=== PATIENT | female | born 1950 | race Caucasian/White ===

== ENCOUNTER → 2017-04-23 | Outpatient (CLI) | payer OTHER, MEDICARE ==
[~2017-04-23] MED LIST: ASPCH81X PO; ATOR-22 PO; LISI-725 PO; MULTCAP42 PO; PRLSR20 PO; ZNTT/150 PO; [UNRECOGNIZED DRUG - CODE] PO
--- NOTE | 2017-04-23 15:52 | MAMMOGRAPHY REPORT ---
BILATERAL DIGITAL SCREENING MAMMOGRAM WITH CAD: 04/23/2017 CLINICAL HISTORY: Routine screening. Patient has no complaints. The patient reported a right breast surgical excisional biopsy in 2016. TECHNIQUE: Current study was also evaluated with a Computer Aided Detection (CAD) system. Bilateral CC and MLO views were obtained. COMPARISON: Comparison is made to exams dated: 03/04/2016 stereotactic biopsy, 03/04/2016 mammogram, mammogram, 02/11/2016 mammogram, 02/27/2013 mammogram, and 02/27/2013 aspiration - [facility]. BREAST COMPOSITION: There are scattered areas of fibroglandular density in both breasts. FINDINGS: No suspicious masses, calcifications, or areas of architectural distortion are noted in ei ther breast. There has been no significant interval change compared to prior exams. There is new den sity and architectural distortion in the right breast at approximately 12 to 1:00, which likely repre sents post surgical changes from interval surgical excision (right breast stereotactic biopsy perform ed on February 2016 showed a small intraductal papilloma). A linear scar marker denotes a scar on the right anterior 12:00 breast. Oval benign-appearing 10 mm mass in the left medial breast is stable. IMPRESSION: ACR BI-RADS CATEGORY 2: BENIGN There is no mammographic evidence of malignancy. A 1 year screening mammogram is recommended. The pa tient will receive written notification of the results. Approximately 10% of breast cancers are not detected with mammography. A negative mammographic report should not delay biopsy if a clinically suggestive mass is present. Camille Cortez M.D. ah/:04/23/2017 14:32:25 [employer] Curator: Fouzia SETH(Marcella)(Devendra), [facility] letter sent: Normal 1/2 BI-RADS Code: ACR BI-RADS Category 2: Benign
== END | disposition home or self-care (01) ==
LOC: C.MAMM 13:44
PROVIDERS: ATTEND Obstetrics & Gynecology Reproductive Endocrinology
DX: Z12.31 Encounter for screening mammogram for malignant neoplasm of breast (principal)

== ENCOUNTER 2017-05-23 06:12 | Emergency (ER) | payer OTHER, MEDICARE ==
[~2017-05-23] VITALS: Ht 180.3 cm; Wt 92.9 kg
[2017-05-23 06:21] VITALS: TEMP 36.5; Ht 180.3 cm; Wt 92.9 kg
[2017-05-23] MEDS ORDERED: LPT40 PO (06:43)
[2017-05-23] MEDS ORDERED: LEVO25TA5 PO (06:43)
[2017-05-23] MEDS ORDERED: FLNIN/ NAE (06:43)
[2017-05-23] MEDS ORDERED: PROG1CAP PO (06:43)
[2017-05-23] MEDS ORDERED: LEVO200T6 PO (06:43)
[2017-05-23] MEDS ORDERED: FEXO1TAB49 PO (06:45)
[2017-05-23] MEDS ORDERED: ERGO500037 PO (06:46)
[2017-05-23] MEDS ORDERED: CALC-20 PO (06:46)
[2017-05-23] MEDS ORDERED: HYZ/50125 PO (06:47)
[2017-05-23] MEDS ORDERED: PRT/20 PO (06:47)
[2017-05-23] MEDS ORDERED: EST1 PO (06:49)
[2017-05-23] MEDS ORDERED: PANT40TA2 PO (06:49)
[2017-05-23 06:51] LABS: MANUAL MICROSCOPIC REQUIRED? YES; REVIEW REQ? NO; SULFASALICYLIC ACID NEG (NEG); URINE APPEARANCE SLIGHTLY CLOUDY (CLEAR); URINE COLOR ORANGE; URINE SPECIFIC GRAVITY 1.015 (1.000-1.030)
[2017-05-23 06:54] LABS: URINE BACTERIA 1+ (NEG); URINE RBC >30 /hpf (0-4); URINE WBC >30 /hpf (0-5); ZZUR CULT IF INDIC CLEAN CATCH YES
--- NOTE | 2017-05-23 07:06 | EMERGENCY ROOM VISIT NOTE ---
History Report prepared by Reggie: Donovan Cardona Under the Supervision of: Dr. Beena Simmons D.O. First contact with patient: 06:26 Chief Complaint: URINARY SYMPTOMS Stated Complaint: UTI History of Present Illness The patient is a 67 year old female with a history of UTI's who presents to the Emergency Room with complaints of persistent urinary symptoms that started 3 days ago. She says that her is having a probable staph infection on his finger, and she started getting UTI symptoms around the same time, so given the circumstances, she decided to be seen here. The patient states that she started on her Nitrofurantoin 3 days ago. She notes that she has never grown out a strain that is resistant to antibiotics. The patient notes that she has been having lower abdominal pain, burning and increased urgency of urination. She adds that she has been having some chills as well. The patient denies any nausea , vomiting, back pain, fevers, abnormal vaginal discharge, or bowel movement changes. Source of History: patient Onset: 3 days ago Position: other (global - urinary symptoms) Quality: other (burning, increased urgency) Timing: other (persistent) Associated Symptoms: + chills, + abdominal pain, No fevers, No nausea, No vomiting, No back pain Note: Associated symptoms: Denies abnormal vaginal discharge, bowel movement changes. Review of Systems See HPI for pertinent positives & negatives. A total of 10 systems reviewed and were otherwise negative. Past Medical & Surgical Medical Problems: (1) Hypercholesteremia Surgical Problems: (1) S/P cholecystectomy Family History Cancer Heart disease Social History Smoking Status: Never Smoker Marital Status: Housing Status: lives with family Occupation Status: employed Current/Historical Medications Scheduled Aspirin (Aspirin Chewable), 81 MG PO DAILY Atorvastatin (Atorvastatin Calcium), 40 MG PO DAILY Calcium Carbonate-Vitamin D (Calcium 600 + D), 1 TAB PO DAILY Cephalexin (Keflex), 1 CAP PO BID Ergocalciferol (Vitamin D 73966 Unit), 50,000 UNIT PO 2XWK Estradiol (Estradiol), 3 MG PO DAILY Fexofenadine Hcl (Christine Allergy), 1 TAB PO DAILY Fluticasone Propionate (Fluticasone Propionate), 1-2 SPRAYS MARLEN DAILY Hctz/Losartan (Hyzaar 12.5MG/50MG), 1 TAB PO DAILY Levothyroxine Sodium (Levothyroxine Sodium), 200 MCG PO DAILY Levothyroxine Sodium (Levothyroxine Sodium), 25 MCG PO DAILY Multiple Vitamin (Multivitamins), 1 CAP PO DAILY Pantoprazole (Pantoprazole Sodium), 40 MG PO QAM Progesterone Micronized (Progesterone), 100 MG PO DAILY Ranitidine (Zantac), 150 MG PO HS Allergies Coded Allergies: Sulfa Antibiotics (Verified Allergy, Severe, HIVES, 05/23/17) Fluconazole (Verified Adverse Reaction, Intermediate, thrush, 05/23/17) Physical Exam Vital Signs Date Time Temp Pulse Resp B/P (MAP) Pulse Ox O2 Delivery O2 Flow Rate FiO2 05/23/17 07:29 81 16 128/67 96 Room Air 05/23/17 06:21 36.5 95 18 177/92 92 Room Air Physical Exam GENERAL: alert, well appearing, well nourished, no distress, non-toxic EYE EXAM: normal conjunctiva, PERRL and EOM's grossly intact OROPHARYNX: no exudate, no erythema, lips, buccal mucosa, and tongue normal and mucous membranes are moist NECK: supple, no nuchal rigidity, no adenopathy, non-tender LUNGS: Clear to auscultation. Normal chest wall mechanics HEART: no murmurs, S1 normal and S2 normal ABDOMEN: Mild suprapubic tenderness. Abdomen soft, normo-active bowel sounds, no masses, no rebound or guarding. BACK: Back is symmetrical on inspection and there is no deformity, no midline tenderness, no CVA tenderness. SKIN: no rashes and no bruising UPPER EXTREMITIES: upper extremities are grossly normal. LOWER EXTREMITIES: No pitting edema. NEURO EXAM: Normal sensorium, cranial nerves II-XII grossly intact, normal speech, no gross weakness of arms, no gross weakness of legs. Medical Decision & Procedures Laboratory Results Test 05/23/17 06:25 Urine Color ORANGE Urine Appearance SLIGHTLY CLOUDY (CLEAR) Urine pH (4.5-7.5) Urine Specific [place] 1.015 (1.000-1.030) Urine Protein NEG (NEG) Urine Glucose (UA) (NEG) Urine Ketones (NEG) Urine Occult Blood (NEG) Urine Nitrite (NEG) Urine Bilirubin (NEG) Urine Urobilinogen (NEG) Urine Leukocyte Esterase (NEG) Urine RBC >30 /hpf (0-4) Urine WBC >30 /hpf (0-5) Urine Epithelial Cells 10-20 /lpf (0-5) Urine Bacteria 1+ (NEG) Date/Time Source Procedure Growth Status 05/23/17 06:25 Urine , Clean Catch Urine Culture - Final THREE TYPES OF ORGANISMS PRESENT, ALL... Complete Laboratory results per my review. Medications Administered Medications (Trade) Dose Ordered Sig/Radha Route Start Time Stop Time Status Last Admin Dose Admin Fluconazole (Diflucan Tab) 150 mg NOW ONCE PO 05/23/17 07:30 05/23/17 07:31 DC 05/23/17 07:27 150 MG Cephalexin Monohydrate (Keflex Cap) 500 mg NOW ONCE PO 05/23/17 07:30 05/23/17 07:31 DC 05/23/17 07:27 500 MG ED Course 0700: The patient was evaluated in room B12B. A complete history and physical exam was performed. 0720: Upon reevaluation, the patient is feeling better. I discussed the findings and the treatment plan with the patient. She verbalizes agreement and understanding. She will be discharged home. 0730: Ordered Keflex Cap 500 mg PO, Diflucan Tab 150 mg PO. Medical Decision Differential diagnosis: Etiologies such as renal colic, appendicitis, diverticulitis, mesenteric ischemia, aortic pathology, infections, inflammatory bowel disease, PUD, biliary pathology, UTI, as well as others were entertained. Pt's clinical exam not consistent with pyelo, doubt bacteremia/sepsis. Pt worried about yeast infection as she is prone to these when on antibiotics. No current vaginal dc or bleeding. States sx feel similar to prior UTI's. No hx of ESBL or resistant organisms. Medication Reconcilliation Current Medication List: was personally reviewed by me Blood Pressure Screening Patient's blood pressure: Normal blood pressure Impression Primary Impression: Urinary tract infection Scribe Attestation The scribe's documentation has been prepared under my direction and personally reviewed by me in its entirety. I confirm that the note above accurately reflects all work, treatment, procedures, and medical decision making performed by me. Departure Information Dispostion Home / Self-Care Prescriptions Cephalexin (KEFLEX) 500 Mg Cap 1 CAP PO BID for 7 Days, #14 CAP Prov: Beena Simmons, 05/23/17 Referrals Hernandez, Bryn H.,M.D. (PCP) Patient Instructions My [facility] Additional Instructions Please take the antibiotics as prescribed and drink plenty of fluids. Please consider taking a probiotic to help minimize any GI symptoms while you're on antibiotics. If you have any worsening urinary symptoms, develop worsening abdominal pain, back pain, fevers or chills, vomiting, or you have any other new concerns, please return the emergency room. Problem Qualifiers Primary Impression: Urinary tract infection Urinary tract infection type: acute cystitis Hematuria presence: with hematuria Qualified Codes: N30.01 - Acute cystitis with hematuria
[2017-05-23 07:29] VITALS: BP 128/67; PULSE 81; O2SAT 96
[2017-05-23] MEDS ORDERED: EMPTY 8 DRAM VIAL ONE (07:29)
[2017-05-23] MEDS ORDERED: CEPHALEXIN MONOHYDRATE 250 MG CAP PO ONE (07:30)
[2017-05-23] MEDS ORDERED: FLUCONAZOLE 50 MG TAB PO ONE (07:30)
[2017-05-23] MEDS ORDERED: CEPH-571 PO (07:49)
== END 2017-05-23 07:58 | disposition home or self-care (01) ==
LOC: C.EDB 06:12
DX: N39.0 Urinary tract infection, site not specified (principal); E78.00 Pure hypercholesterolemia, unspecified; Z79.82 Long term (current) use of aspirin; Z87.440 Personal history of urinary (tract) infections; Z90.49 Acquired absence of other specified parts of digestive tract; Z80.9 Family history of malignant neoplasm, unspecified; Z82.49 Family history of ischemic heart disease and other diseases of the circulatory system